=== PATIENT | male | born 1940 | race Caucasian/White ===

== ENCOUNTER 2019-07-08 04:55 | Inpatient (IN) ==
[2019-07-08 05:32] LABS: BASO# 0.03 X1000 (0.0-0.2); BASO% 0.3 % (0.0-0.8); EOS# 0.16 X1000 (0.0-0.7); EOS% 1.5 % (0.0-10.0); HEMATOCRIT 32.3 % (42.0-52.0); HEMOGLOBIN 10.4 g/dL (14.0-18.0); IMM GRAN# 0.05 X1000 (0.0-0.04); IMM GRAN% 0.5 % (0.0-0.5); LYMPH# 1.55 X1000 (1.2-3.4); LYMPH% 14.5 % (20.5-51.1); MCH 27.2 PG (27-31); MCHC 32.2 g/dL (33-37); MCV 84.6 FL (81-99); MONO# 1.23 X1000 (0.11-0.59); MONO% 11.5 % (1.7-9.3); NEUT# 7.65 X1000 (1.4-6.5); NEUT% 71.7 % (42.2-75.2); PLT 397 X1000 (130-400); RBC 3.82 XMIL (4.7-6.1); RDW 15.5 % (11.5-14.5); WBC 10.67 X1000 (4.8-10.8)
[2019-07-08 05:43] LABS: INR 1.07; PROTIME 14.5 Seconds (11.0-16.0); PTT 25.7 Seconds (22.3-41.8)
[2019-07-08 06:07] LABS: ESTIMATED GFR > 60
[2019-07-08 06:11] LABS: AGAP 15; ALBUMIN 2.3 g/dL (3.5-5.0); ALKALINE PHOSPHATASE 94 U/L (32-122); BUN 10 mg/dL (8-22); CHLORIDE 103 mmol/L (98-107); COSMO 278; CREATININE 0.8 mg/dL (0.7-1.2); GLUCOSE 99 mg/dL (70-104); GOT 38 U/L (10-34); GPT 33 U/L (10-44); POTASSIUM 2.9 mmol/L (3.5-5.1); SODIUM 140 mmol/L (136-145); TCO2 22 mmol/L (25-35); TOTAL PROTEIN 5.2 g/dL (6.3-8.3)
[2019-07-08 06:12] LABS: CALCIUM 6.3 mg/dL (8.8-10.2)
[2019-07-08] MEDS ORDERED: CALCIUM GLUCONATE 1 GM in NS 50 ML IV ONE ×2 (06:36→13:36)
[2019-07-08] MEDS ORDERED: LEVAQUIN 500 MG/D5W 500 MG/100 ML IVPB IV ONE (06:36)
[2019-07-08] MEDS ORDERED: NS 1,000 ML IV ONE ×2 (06:37→08:54)
[2019-07-08 06:43] LABS: INFLUENZA A NEGATIVE (NEGATIVE); INFLUENZA B NEGATIVE (NEGATIVE)
--- NOTE | 2019-07-08 06:43 | PROVIDER DOCUMENTATION ---
HPI-Chest Pain - General Chief Complaint: Chest Pain Stated Complaint: CP Time Seen by Provider: 07/08/19 04:55 Source: patient Allergies/Adverse Reactions: Patient Allergies Allergy/AdvReac Type Severity Reaction Status Date / Time alcohol AdvReac Unknown Verified 07/08/19 05:26 Home Medications: Home Medication List Medication Instructions Recorded Confirmed Last Taken Type ATORVAstatin [Lipitor] 10 mg PO DAILY 07/08/19 07/08/19 Unknown History Aspirin [Adult Aspirin Regimen] 81 mg PO DAILY 07/08/19 07/08/19 Unknown History Atorvastatin Calcium [Lipitor] 10 mg PO HS 07/08/19 07/08/19 Unknown History Cyanocobalamin (Vitamin B-12) 1,000 mcg PO DAILY 07/08/19 07/08/19 Unknown History [Vitamin B12] Fexofenadine HCl 180 mg PO DAILY 07/08/19 07/08/19 Unknown History Metoprolol Succinate E.r. [Toprol 0.5 tab PO DAILY 07/08/19 07/08/19 Unknown History Xl] Midodrine HCl 5 mg PO DAILY 07/08/19 07/08/19 Unknown History Montelukast Sodium [Singulair] 10 mg PO DAILY 07/08/19 07/08/19 Unknown History Nitroglycerin [Nitrostat] 0.4 mg SUBLINGUAL PRN PRN 07/08/19 07/08/19 Unknown History Omeprazole 20 mg PO DAILY 07/08/19 07/08/19 Unknown History Vismodegib [Erivedge] 150 mg PO DAILY 07/08/19 07/08/19 Unknown History - History of Present Illness-CP Nature of Presenting Problem: 79 y/o WM c/o lt sided chest pain worse with inspiration that started about 3 hrs ago. Pt took asp and nitro given by EMS that improves his symptoms. Location: reports: other (lt sided) Chest Pain Radiation: reports: no radiation Quality of Pain: reports: aching Severity in ED: mild Onset/Duration: 1-3 hours ago Timing: still present Context/Activities at Onset: reports: rest Modifying Factors: improves with: nothing Associated Symptoms: reports: denies symptoms Nitro Today/Relief: provided by EMS Aspirin Treatment Today: 325 mg x 1, provided by EMS Similar Symptoms Previously?: Yes Recently Seen Here or By Another Healthcare Provider: No Review of Systems - Adult - REVIEW OF SYSTEMS - ADULT Constitutional: reports: no symptoms reported, see HPI Eyes: reports: no symptoms reported, see HPI Ears, Nose, Mouth & Throat: reports: no symptoms reported, see HPI Cardiovascular: reports: see HPI, chest pain Respiratory: reports: see HPI, cough Gastrointestinal: reports: no symptoms reported, see HPI Genitourinary: reports: no symptoms reported, see HPI Musculoskeletal: reports: no symptoms reported, see HPI Integumentary: reports: no symptoms reported, see HPI Neurological: reports: no symptoms reported, see HPI Psychiatric: reports: no symptoms reported, see HPI Endocrine: reports: no symptoms reported, see HPI Hematologic/Lymphatic: reports: no symptoms reported, see HPI Allergic/Immunologic: reports: no symptoms reported, see HPI All Other Systems: Reviewed and Negative Past History - Adult - PAST MEDICAL HISTORY-ADULT Review of Records: reports: Nursing Assessment Review, Medications Reviewed, Social history reviewed & non-contributory. - PRIOR SURGERIES/PROCEDURES Surgical/Procedure History: reports: back/neck, other - IMMUNIZATION STATUS Childhood Immunizations: See Nurse Assessment Flu Vaccine: See Nurse Assessment - FAMILY HISTORY Family History: reviewed, not pertinent Physical Exam-General - PHYSICAL EXAM-ADULT Initial Vital Signs Reviewed: Yes - CONSTITUTIONAL General Appearance: appears well, alert, no apparent distress - EYES Eyes: PERRL/EOMI - HEAD, EARS, NOSE, MOUTH & THROAT HENMT: normocephalic/atraumatic, moist mucous membranes - NECK Neck: non-tender, full range of motion, supple, normal inspection - RESPIRATORY Respiratory: chest non-tender, lungs clear, normal breath sounds, no pleuratic chest pain, no respiratory distress, no accessory muscle use - CARDIOVASCULAR Cardiovascular: normal peripheral pulses, regular rate, rhythm, no edema, no gallop, no JVD, no murmur - GASTROINTESTINAL (ABDOMEN) Abdominal Exam: normal bowel sounds, non tender, soft, no organomegaly, no pulsatile mass - LYMPHATIC Lymphatic: no adenopathy - MUSCULOSKELETAL Back Exam: normal inspection, no CVA tenderness, no vertebral tenderness Extremity: normal range of motion, non-tender, normal gait, normal inspection, no pedal edema, no calf tenderness, normal capillary refill - SKIN Integumentary: normal color, normal turgor - NEUROLOGIC Neurologic: refrigerator glazier II-XII nml as tested, grossly normal, no motor/sensory deficits - PSYCHIATRIC Psych/Mental Status: normal mood/affect, normal thought content, normal thought process, oriented x 3 - HEART Score HEART Score: History: Slightly Suspicious HEART Score: ECG: Non-Specific Repolarization Disturbance/LBBB/PM HEART Score: Age: > or = 65 Years HEART Score: Risk Factors for Atherosclerotic Disease: 1 or 2 Risk Factors HEART Score: Troponin: < or = Normal Limit Total HEART Score:: 4 Progress - PLAN OF CARE/RESULTS Progress/Plan/Lab Results: Vital Signs - 8 hr 07/08/19 04:55 Temperature 98.2 F Pulse Rate 96 H Respiratory Rate 16 Blood Pressure 104/53 O2 Sat by Pulse Oximetry 92 L Laboratory Results - last 24 hr 07/08/19 07/08/19 07/08/19 05:20 05:20 05:20 WBC 10.67 RBC 3.82 L Hgb 10.4 L Hct 32.3 L MCV 84.6 MCH 27.2 MCHC 32.2 L RDW Std Deviation 15.5 H Plt Count 397 MPV 9.0 Immature Gran % (Auto) 0.5 Neut % (Auto) 71.7 Lymph % (Auto) 14.5 L [place] % (Auto) 11.5 H Eos % (Auto) 1.5 Baso % (Auto) 0.3 Immature Gran # (Auto) 0.05 H Neut # (Auto) 7.65 H Lymph # (Auto) 1.55 [place] # (Auto) 1.23 H Eos # (Auto) 0.16 Baso # (Auto) 0.03 PT INR PTT (Actin FS) Sodium 140 Potassium 2.9 L Chloride 103 Carbon Dioxide 22 L Anion Gap 15 BUN 10 Creatinine 0.8 Estimated GFR/1.73 m2 > 60 BUN/Creatinine Ratio 13 Glucose 99 Calculated Osmolality 278 Calcium 6.3 L* Total Bilirubin 0.40 AST 38 H ALT 33 Alkaline Phosphatase 94 Troponin T High Sens Avt-U-Cbqoutdcukj Pept 813 H Total Protein 5.2 L Albumin 2.3 L Globulin 3.0 Albumin/Globulin Ratio 1.0 Influenza A (Rapid) Influenza B (Rapid) 07/08/19 07/08/19 07/08/19 05:20 05:20 06:05 WBC RBC Hgb Hct MCV MCH MCHC RDW Std Deviation Plt Count MPV Immature Gran % (Auto) Neut % (Auto) Lymph % (Auto) [place] % (Auto) Eos % (Auto) Baso % (Auto) Immature Gran # (Auto) Neut # (Auto) Lymph # (Auto) [place] # (Auto) Eos # (Auto) Baso # (Auto) PT 14.5 INR 1.07 PTT (Actin FS) 25.7 Sodium Potassium Chloride Carbon Dioxide Anion Gap BUN Creatinine Estimated GFR/1.73 m2 BUN/Creatinine Ratio Glucose Calculated Osmolality Calcium Total Bilirubin AST ALT Alkaline Phosphatase Troponin T High Sens 17 Oif-H-Jnaqojxmuau Pept Total Protein Albumin Globulin Albumin/Globulin Ratio Influenza A (Rapid) NEGATIVE Influenza B (Rapid) NEGATIVE Orders Category Date Time Status CHEST-1 VIEW [RAD] Stat Exams 07/08/19 04:44 Completed BLOOD CULTURE [BLDCUL] Stat Lab 07/08/19 06:44 Ordered CBC WITH ELECTRONIC DIFF [HEME] Stat Lab 07/08/19 05:20 Completed COMPREHENSIVE METABOLIC PANEL [CHEM] Stat Lab 07/08/19 05:[address] Stat Lab 07/08/19 06:05 Completed IONIZED CALCIUM (OUT PT ONLY) [SHEPARD] Stat Lab 07/08/19 06:12 Received PRO B-NATRIURETIC PEPTIDE Stat Lab 07/08/19 05:20 Completed PROTIME WITH INR [COAG] Stat Lab 07/08/19 05:20 Completed PTT [COAG] Stat Lab 07/08/19 05:20 Completed TROPONIN T HIGH SENSITIVITY Stat Lab 07/08/19 05:20 Completed 0.9% Sodium Chloride Inj [Ns] 1,000 ml Med 07/08/19 06:37 Active IV 999 mls/hr Calcium Gluconate 1 gm Med 07/08/19 06:36 Discontinued 0.9% Sodium Chloride Inj [Ns] 50 ml IV NOW Levofloxacin 500 mg/D5w [Levaquin 500 mg/D5w] Med 07/08/19 06:36 Active 500 mg in 100 ml IV NOW EKG [EKG] Stat Ther 07/08/19 04:44 Ordered Result Diagrams: 07/08/19 05:20 07/08/19 05:20 - XRAY 1 XRAY Study: Chest Impression: Abnormal, See EMR Report (Lt lower lobe pneumonia) - CHANGE OF SHIFT REPORT (ED Provider) 1 Report Given and Care Transferred to:: Dr Morales Time of Transfer: 07:00 Items Pending: Physician Consult/Arrival Departure - Departure Date of Disposition Decision: 07/08/19 Time of Disposition Decision: 07:10 DIAGNOSIS: Pneumonia, Chest pain, Hypocalcemia, CHF (congestive heart failure) Disposition: ADMITTED INPATIENT 09 Certified Medical Emergency: Emergent Condition: Fair Referrals and Follow-Ups: None,PCP [Primary Care Provider] - - Critical Care Note This patient required my direct & personal management of CC.: No Attestation - Physician/ MARTÍN Attestation Patient care was provided by Advanced Practice Provider:: No The physician spent face to face time with patient:: Yes Advanced Practice Provider documentation review:: Supervising physician onsite and consulted in the evaluation and care of this patient. The physician did have a face to face encounter with the patient.
--- NOTE | 2019-07-08 07:02 | Diag Imaging Result Doc PS360 ---
EXAM: CHEST-1 VIEW 07/08/2019 HISTORY: cp TECHNIQUE: Erect AP portable at 0523 COMMENT: There is COPD. There are no previous studies. There is alveolar opacification in the left lower lobe. IMPRESSION: Left lower lobe pneumonia. COPD. Electronically signed by Ayush Cleary 07/08/2019 6:59 AM
[2019-07-08] MEDS ORDERED: MAGNESIUM SULFATE 2 GM/S.W.I. 2 GM/50 ML IVPB IV ONE ×2 (08:18→08:56)
[2019-07-08] MEDS ORDERED: NITROGLYCERIN SL PRN (08:54)
[2019-07-08] MEDS ORDERED: KLOR-CON PO ONE ×2 (08:59→13:36)
[2019-07-08] MEDS: ALLEGRA PO SCH (09:00)
[2019-07-08] MEDS: ASPIRIN EC PO SCH (09:00)
[2019-07-08] MEDS ORDERED: PATIENT'S OWN MED PO SCH (09:00)
[2019-07-08] MEDS: SINGULAIR PO SCH (09:25)
[2019-07-08] MEDS: TOPROL XL PO SCH (09:25)
[2019-07-08] MEDS: PROAMATINE PO SCH (09:26)
[2019-07-08] MEDS: VITAMIN B-12 PO SCH (09:28)
--- NOTE | 2019-07-08 10:24 | HISTORY AND PHYSICAL ---
PRIMARY CARE PROVIDER: No one. CHIEF COMPLAINT: Chest pain. HISTORY OF PRESENT ILLNESS: Mr. Neil Giron is a 79-year-old, male with a medical history of left lung cancer where he received radiation and chemotherapy. Apparently, he has been cancer-free from that for about 2 years. Also a history of skin cancer, GERD, stress-induced heart attack in the past, according to his significant other, also with COPD. Woke up from sleep around 3 a.m. with sudden onset of left-sided chest pain. It did not radiate. No nausea. No dizziness or lightheadedness. It was constant. Nothing made it better or worse. He had received nitroglycerin en route. It did not seem to improve. However, it did start to resolve. He denies fever or chills. He has been more weak, sleeping more. He has had a significant weight loss over the past year. He has gone from 180 pounds down to 125 pounds. Currently, his pain is maybe a 1. Upon arrival, he had a workup with laboratory data that showed calcium low at 6.3, magnesium 0.9, and a potassium of 2.9. Albumin also was low at 2.3. Troponins were negative. Then an x-ray that showed left lower lobe pneumonia, so we will keep him here for further treatment and evaluation. Replace all electrolytes. Treat the pneumonia. PAST MEDICAL HISTORY: 1. COPD. No home O2. 2. Stress-induced heart attack, according to his significant other. 3. Hyperlipidemia. 4. Left-sided lung cancer. Only had biopsy but he did have radiation and chemotherapy. Apparently, he has been cancer-free from it for about 2 years. 5. GERD. 6. Seasonal allergies. 7. Skin cancer. SURGICAL HISTORY: 1. Left lung cancer biopsy. 2. Back surgery. 3. Bilateral inguinal hernia repair. 4. Bilateral cataracts. SOCIAL HISTORY: He was a 1 pack per day smoker since the age of 6. He quit approximately 35 years ago. He still chews about a pack a day. No alcohol. No illicit drug use. His significant other girlfriend has been his eligibility examiner for 30 years. FAMILY HISTORY: Mother had heart disease in her 50s. Father had skin cancer. ALLERGIES: Rubbing alcohol causes dizziness. HOME MEDICATIONS: 1. Aspirin 81 mg p.o. daily. 2. Erivedge 150 mg p.o. twice daily. 3. Fexofenadine 180 mg p.o. daily. 4. Lipitor 10 mg p.o. nightly and then 10 mg p.o. daily. 5. Midodrine 5 mg p.o. daily. 6. Nitrostat p.r.n. 7. Omeprazole 20 mg p.o. daily. 8. Singulair 10 mg p.o. daily. 9. Toprol-XL 12.5 mg p.o. daily. 10. Vitamin B12 with 1000 mcg p.o. daily. REVIEW OF SYSTEMS: Fourteen point review of systems are complete and all were negative except for those mentioned above in the HPI. PHYSICAL EXAMINATION: VITAL SIGNS: Temperature 98.1 degrees, heart rate 82, respiratory rate 20, blood pressure 114/55, O2 saturation 95% on 2 L nasal cannula. GENERAL: Mr. Neil Giron is a 79-year-old, male. He is in no acute distress. He is able to answer questions appropriately. HEENT: Atraumatic, normocephalic. Pupils equal, round, reactive to light. Extraocular movements intact. Mucous membranes are dry. NECK: Trachea midline. CARDIOVASCULAR: S1, S2. Regular rate and rhythm. No rubs, gallops, murmurs. No lower extremity edema. There are +2 dorsalis and radial pulses. Negative JVD or carotid bruits. PULMONARY: Clear to auscultate bilateral breath sounds. No accessory muscle use or work of breathing noted. Tolerating 2 L nasal cannula. GI: Soft, nontender, nondistended. Positive bowel sounds x4. EXTREMITIES: Moves all extremities equally. Decreased range of motion. NEUROLOGIC: A and O x3. Follows commands. Sensory is intact. SKIN: Warm, dry, intact. He does have some scabbing along the face and neck. I believe it is from skin cancer. LABORATORY DATA: White blood cells 10,000, hemoglobin 10, hematocrit 32, platelet count 397,000. INR is 1.07, PTT is 25.7. Sodium 140, potassium 2.9, BUN 10, creatinine 0.8, glucose 99, calcium 6.3, magnesium 0.9. Bilirubin 0.40, AST 38, ALT 33, troponin 17. ProBNP 813. Albumin 2.3. Influenza negative. IMAGING: Chest x-ray, left lower lobe pneumonia and COPD. ASSESSMENT AND PLAN: 1. Left lower lobe pneumonia. Antibiotics have been initiated. He will get some intravenous fluids, nebulizer, steroids. 2. Chronic obstructive pulmonary disease with maybe mild exacerbation but there is no obvious distress at this time. Again, he is on steroids and nebulizers. 3. Complaints of chest pain with history of reported myocardial infarction. Continue on metoprolol, statin, and aspirin. Cardiac enzymes negative. 4. History of lung cancer on the left. Imaging shows pneumonia on the left. We will just get a CT to make sure that there is not a return of the lung cancer. Apparently, he has been in remission for about 2 years but he also reports a significant weight loss over the past year. He has dropped from 180 pounds down to 125 pounds. 5. Gastroesophageal reflux disease. Continue Prilosec. 6. Seasonal allergies. Continue home medications. 7. Skin cancer. Continue the Erivedge. 8. Deep venous thrombosis prophylaxis. Sequential compression devices. Dictated by JUAN DAVID Chow for Jean Pérez MD cc: JUAN DAVID Chow MD
[2019-07-08 10:35] LABS: BASO# 0.02 X1000 (0.0-0.2); BASO% 0.2 % (0.0-0.8); EOS# 0.07 X1000 (0.0-0.7); EOS% 0.7 % (0.0-10.0); HEMATOCRIT 31.9 % (42.0-52.0); HEMOGLOBIN 10.4 g/dL (14.0-18.0); IMM GRAN# 0.06 X1000 (0.0-0.04); IMM GRAN% 0.6 % (0.0-0.5); LYMPH# 0.71 X1000 (1.2-3.4); MCH 27.9 PG (27-31); MCHC 32.6 g/dL (33-37); MCV 85.5 FL (81-99); MONO# 1.09 X1000 (0.11-0.59); MONO% 10.7 % (1.7-9.3); NEUT# 8.21 X1000 (1.4-6.5); NEUT% 80.8 % (42.2-75.2); PLT 405 X1000 (130-400); RBC 3.73 XMIL (4.7-6.1); RDW 15.8 % (11.5-14.5); WBC 10.16 X1000 (4.8-10.8)
[2019-07-08] MEDS: SOLU-MEDROL IV SCH ×2 (10:49→21:47)
[2019-07-08] MEDS: PRILOSEC PO SCH (10:49)
[2019-07-08 10:58] LABS: ESTIMATED GFR > 60
[2019-07-08 11:04] LABS: AGAP 12; ALBUMIN 2.4 g/dL (3.5-5.0); ALKALINE PHOSPHATASE 89 U/L (32-122); BUN 9 mg/dL (8-22); CHLORIDE 105 mmol/L (98-107); CK PROFILE 104 U/L (24-204); COSMO 281; CREATININE 0.7 mg/dL (0.7-1.2); GLUCOSE 85 mg/dL (70-104); GOT 30 U/L (10-34); GPT 30 U/L (10-44); POTASSIUM 2.8 mmol/L (3.5-5.1); SODIUM 142 mmol/L (136-145); TCO2 25 mmol/L (25-35); TOTAL PROTEIN 4.3 g/dL (6.3-8.3)
[2019-07-08 11:06] LABS: CALCIUM 6.1 mg/dL (8.8-10.2)
[2019-07-08] MEDS: DUONEB (A & A) INH SCH ×4 (12:31→22:46)
--- NOTE | 2019-07-08 12:41 | Diag Imaging Result Doc PS360 ---
EXAM: CT THORAX W/O CONTRAST 07/08/2019 HISTORY: h/o left lung cancer; pna TECHNIQUE: This exam was performed using automated exposure control, adjustment of mA or kV according to patient size, and/or use of iterative reconstruction technique. COMMENT: There are no previous studies available for comparison. There is severe COPD. There is fibrosis or atelectasis dependently in the left upper lobe. There is a small apical pneumothorax on the left. There is consolidation of the left lower lobe posteriorly and inferiorly. There is shift of the mediastinum to the left presumably largely due to volume loss in the upper and lower lobes. There is platelike atelectasis versus fibrosis in the dependent portion of the right lower lobe. There is coronary atherosclerotic calcification. No definite adenopathy is present. IMPRESSION: Atelectasis and probable pneumonia particularly in the left lower lobe. Left pneumothorax. The findings were discussed with JUAN DAVID Akins at 07/08/2019 12:38 PM. Electronically signed by Ayush Cleary 07/08/2019 12:38 PM
[2019-07-08 13:29] LABS: ALBUMIN 2.5 g/dL (3.5-5.0); MAGNESIUM 1.2 mg/dL (1.5-2.7)
[2019-07-08 13:35] LABS: CALCIUM 6.4 mg/dL (8.8-10.2)
[2019-07-08 17:57] LABS: URINE SOURCE CLEAN CATCH
[2019-07-08 18:00] LABS: BILIRUBIN URINE NEGATIVE (NEGATIVE); BLOOD URINE NEGATIVE (NEGATIVE); COLOR YELLOW; GLUCOSE URINE NEGATIVE (NEGATIVE); KETONE URINE NEGATIVE (NEGATIVE); LEUKOCYTES URINE NEGATIVE (NEGATIVE); NITRITE URINE NEGATIVE (NEGATIVE); PROTEIN URINE TRACE mg/dL (NEGATIVE); SP GRAVITY URINE 1.015; TURBIDITY URINE CLEAR (CLEAR); UR EPITHELIAL CELLS <10 /HPF (<10); URINE BACTERIA NEGATIVE /HPF; URINE RBC <10 /HPF (<10); URINE WBC <10 /HPF (<10); UROBILINOGEN URINE NORMAL (NORMAL)
[2019-07-08] MEDS: MAG-OX PO SCH (21:46)
[2019-07-08] MEDS: LIPITOR PO SCH (21:46)
[2019-07-08] MEDS: PATIENT'S OWN MED PO SCH (21:47)
--- NOTE | 2019-07-08 21:58 | PROGRESS NOTE ---
DATE: 07/08/2019 SUBJECTIVE: Patient presented to the hospital with chest pain. He did have a myocardial infarction with most recent being April 2015. He is complaining of cough, congestion and shortness of breath. CT demonstrates a 20% to 30% pneumothorax. This is likely the cause of his pain. We are going to admit him to the hospital and will follow his hypokalemia. We are going to replace this. He appears to have pneumonia. Place him on antibiotics and will follow. cc: Jean Pérez MD
[2019-07-09] MEDS: DUONEB (A & A) INH SCH ×6 (03:13→23:15)
[2019-07-09] MEDS: PRILOSEC PO SCH (06:02)
[2019-07-09 06:46] LABS: AGAP 14; ALBUMIN 2.3 g/dL (3.5-5.0); ALKALINE PHOSPHATASE 100 U/L (32-122); BUN 13 mg/dL (8-22); CHLORIDE 107 mmol/L (98-107); COSMO 288; CREATININE 0.9 mg/dL (0.7-1.2); ESTIMATED GFR > 60; GLUCOSE 147 mg/dL (70-104); GOT 26 U/L (10-34); GPT 33 U/L (10-44); POTASSIUM 3.2 mmol/L (3.5-5.1); SODIUM 143 mmol/L (136-145); TCO2 22 mmol/L (25-35); TOTAL PROTEIN 5.1 g/dL (6.3-8.3)
[2019-07-09 06:48] LABS: CALCIUM 6.7 mg/dL (8.8-10.2)
[2019-07-09 07:00] LABS: HEMOGLOBIN 9.8 g/dL (14.0-18.0); IMM GRAN# 0.09 X1000 (0.0-0.04); IMM GRAN% 0.7 % (0.0-0.5); LYMPH# 0.23 X1000 (1.2-3.4); LYMPH% 1.7 % (20.5-51.1); MCH 26.7 PG (27-31); MCHC 31.6 g/dL (33-37); MCV 84.5 FL (81-99); MONO# 0.67 X1000 (0.11-0.59); MONO% 5.1 % (1.7-9.3); NEUT# 12.19 X1000 (1.4-6.5); NEUT% 92.5 % (42.2-75.2); PLT 464 X1000 (130-400); RBC 3.67 XMIL (4.7-6.1); RDW 15.4 % (11.5-14.5); WBC 13.18 X1000 (4.8-10.8)
[2019-07-09] MEDS ORDERED: MAGNESIUM SULFATE 4 GM/S.W.I. 4 GM/100 ML IVPB IV ONE (07:00)
[2019-07-09] MEDS ORDERED: KLOR-CON PO ONE (07:02)
--- NOTE | 2019-07-09 07:19 | Diag Imaging Result Doc PS360 ---
EXAM: CHEST-2 VIEWS HISTORY: Pneumonia; Pneumothorax TECHNIQUE: Two views COMPARISON: 07/08/2019 FINDINGS: The patient has severe emphysema. There is a tiny apical pneumothorax on the left. The infiltrates in the lower left lung are less pronounced on the current study. There are small pleural effusions. Cardiomegaly. IMPRESSION: Interval improvement Electronically signed by Raciel Estrada 07/09/2019 7:17 AM
[2019-07-09 07:39] LABS: LYMPHS 2 % (21-51); MONO 4 % (1-9); SEGS 94 % (42-75)
[2019-07-09] MEDS: VITAMIN B-12 PO SCH (08:07)
[2019-07-09] MEDS: CITRACAL + D PO SCH ×2 (08:07→21:10)
[2019-07-09] MEDS: PROAMATINE PO SCH (08:07)
[2019-07-09] MEDS: ASPIRIN EC PO SCH (08:07)
[2019-07-09] MEDS: MAG-OX PO SCH ×2 (08:07→21:45)
[2019-07-09] MEDS: ALLEGRA PO SCH (08:07)
[2019-07-09] MEDS: TOPROL XL PO SCH (08:07)
[2019-07-09] MEDS: PATIENT'S OWN MED PO SCH (08:08)
[2019-07-09] MEDS: SINGULAIR PO SCH (08:09)
[2019-07-09] MEDS ORDERED: LEVAQUIN 500 MG/D5W 500 MG/100 ML IVPB IV SCH (09:00)
--- NOTE | 2019-07-09 10:04 | EKG Report ---
Test Performed on : 07/08/2019 05:04:19 AM Test Reason : ER Blood Pressure : / mmHG Vent. Rate : 090 BPM Atrial Rate : 090 BPM P-R Int : 168 ms QRS Dur : 084 ms QT Int : 402 ms P-R-T Axes : 092 -79 092 degrees QTc Int : 491 ms Sinus rhythm. with frequent premature ventricular complexes. Left axis deviation Low voltage QRS Nonspecific ST and T wave abnormality Abnormal ECG No previous ECGs available Unconfirmed Result
[2019-07-09] MEDS: SOLU-MEDROL IV SCH ×2 (11:31→21:11)
[2019-07-09] MEDS: LIPITOR PO SCH (21:45)
[2019-07-10] MEDS: DUONEB (A & A) INH SCH ×2 (03:10→07:09)
--- NOTE | 2019-07-10 06:41 | PROGRESS NOTE ---
DATE: 07/09/2019 SUBJECTIVE: The patient notes that his chest pain is improving. He states overall he is feeling better, improved breathing. Denies any current wheezing. OBJECTIVE: Vitals: He is afebrile. Vital signs stable. Respiratory 20. Blood pressure is stable. General: The patient is awake and alert. He is in mild distress. HEENT: Normocephalic. Neck: Supple. Cardiovascular: Regular rate. Chest: Clear. Currently no wheezing, no current crackles. Positive rhonchi. Abdomen: Soft. Nondistended. Extremities: Moves all extremities. ASSESSMENT: 1. Left lower lobe pneumonia. 2. COPD with mild exacerbation. 3. Hypomagnesemia. 4. Hypocalcemia. 5. Moderate protein-calorie malnutrition. 6. Hypokalemia. 7. Leukocytosis. PLAN: We are going to continue the patient in the hospital, continue breathing treatments, oxygen, antibiotics, and will follow. Hopefully he can discharge home over the next 1 or 2 days if he continues to improve. cc: Jean Pérez MD
[2019-07-10] MEDS: PRILOSEC PO SCH (06:49)
[2019-07-10 08:09] VITALS: BP 103/47
[2019-07-10] MEDS: CITRACAL + D PO SCH (08:59)
[2019-07-10] MEDS: VITAMIN B-12 PO SCH (08:59)
[2019-07-10] MEDS: ALLEGRA PO SCH (08:59)
[2019-07-10] MEDS: MAG-OX PO SCH (09:00)
[2019-07-10] MEDS: ASPIRIN EC PO SCH (09:00)
[2019-07-10] MEDS: TOPROL XL PO SCH (09:00)
[2019-07-10] MEDS: SINGULAIR PO SCH (09:00)
[2019-07-10] MEDS ORDERED: LEVAQUIN PO SCH (09:00)
[2019-07-10] MEDS: PROAMATINE PO SCH (09:00)
--- NOTE | 2019-07-11 12:54 | DISCHARGE SUMMARY ---
ADMISSION DATE: 07/08/2019 DISCHARGE DATE: 07/10/2019 DISCHARGE DIAGNOSES: 1. Left lower lobe pneumonia, improved. 2. Chronic obstructive pulmonary disease. 3. Chest pain, resolved. 4. History of lung cancer on the left. 5. Chronic reflux. 6. Hypomagnesemia, resolved. 7. Hypocalcemia, resolved. 8. Moderate protein calorie malnutrition. 9. Hypokalemia. 10. Leukocytosis. CONSULTATIONS: None. PROCEDURES: None. BRIEF HOSPITAL COURSE: The patient is a 79-year-old male who presented to the hospital with increased cough and congestion, increased shortness of breath, and increased work of breathing. He [*]to smoke a pack a day for several years. He stopped a few years ago. Continues to chew tobacco. He was admitted to the hospital, placed on antibiotics, breathing treatments, oxygen and steroids. He continued to improve. On discharge, he is currently awake, alert, he is in no distress. Notes that his symptoms have improved, he is feeling better, and we will discharge him home. TIME SPENT: Greater than 30 minutes was spent in total care. cc: Jean Pérez MD
[2019-07-13] MEDS ORDERED: PATIENT'S OWN MED PO SCH (09:00)
== END 2019-07-10 10:06 | disposition home or self-care (01) | DRG 190 ==
LOC: P.ED 04:55 → P.MEDSURG 09:30
PROVIDERS: ATTEND Family Medicine